=== PATIENT | female | born 1955 | race Caucasian/White ===

== ENCOUNTER → 2019-12-01 08:07 | Outpatient (CLI) | payer OTHER, SELFPAY ==
--- NOTE | 2019-12-01 08:16 | MRI_ITS ---
STUDY: MRI LEFT ANKLE WITHOUT CONTRAST REASON FOR EXAM: Female, 64 years old. 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 COMPARISON: None. FINDINGS: Moderate Achilles tendinosis with retrocalcaneal bursitis, mild paratenonitis and tiny superficial tear (axial image 18 series 4). Small plantar spur. Mild chronic plantar fascial thickening without acute process. Normal muscles of the midfoot/hindfoot. Mild calcaneal bone marrow edema. Normal posterior tibialis tendon. Normal flexor digitorum longus tendon. Normal flexor hallucis longus tendon. Mild peroneus longus and brevis tenosynovitis. Normal tibialis anterior tendon. Normal extensor hallucis longus tendon. Normal extensor digitorum longus tendons. Normal distal tibiofibular syndesmotic ligamentous complex. Normal lateral ligamentous complex. Normal subtalar ligaments and sinus tarsi. Normal deltoid ligamentous complexes. Normal plantar calcaneonavicular (spring) ligament. Normal Lisfranc ligament. Normal tibiotalar cartilage. Normal talar dome. Normal subtalar cartilage. Normal talonavicular articulation. Minimal calcaneocuboid arthrosis (sagittal image 14 series 9). Normal navicular-cuneiform articulations. Small tibiotalar/subtalar joint effusion. MRI/Lower Ext Joint Only (Routine) IMPRESSION: Moderate Achilles tendinosis with retrocalcaneal bursitis, mild paratenonitis and tiny superficial tear Mild calcaneal bone marrow edema Mild peroneus longus/brevis tenosynovitis Small tibiotalar/subtalar joint effusion Electronically Signed: Gibson Blackburn DO at 9:14 EST Tel , Service support ,
== END ==
PROVIDERS: Referring Provider Podiatrist; Visit Provider Podiatrist
DX: M76.62 Achilles tendinitis, left leg (principal); M77.32 Calcaneal spur, left foot
CPT/HCPCS: 73721